=== PATIENT | female | born 1940 | race Caucasian/White ===

== ENCOUNTER 2018-03-08 14:43 | Emergency (ER) | payer MEDICARE ==
[2018-03-08 14:53] VITALS: BP 143/64
--- NOTE | 2018-03-08 15:07 | UC ---
Respiratory Complaint HPI - HPI Summary HPI Summary: 77 y/o male presents to the urgent care c/o dry cough w/ nasal congestion, sinus pain, Kimble, a yellowish nasal discharge. Pt report symptoms started w/ the common cold and mild wheezing at the beginning, which has resolved. However she has +PND which is yellowish at times. she was Dx in the past w/ Asthma, but she doesn't like to take medications. Sinus pain and KIMBLE is 4/10 at times. Pt denies SOB, wheezing, chest pain, abdominal pain, N/V/D. c - History of Current Complaint Chief Complaint: UCRespiratory Stated Complaint: ASTHMA Time Seen by Provider: 03/08/18 15:05 Hx Obtained From: Patient Hx Last Menstrual Period: Years ago. Onset/Duration: Gradual Onset, Lasting Days - 10 days, Still Present, Worse Since - yesterday Timing: Constant Severity Initially: Mild Severity Currently: Moderate Pain Intensity: 4 - sinus pain and head Pain Scale Used: 0-10 Numeric Character: Cough: Nonproductive Aggravating Factors: Recumbent Position Alleviating Factors: OTC Meds Associated Signs And Symptoms: Positive: Wheezing - at the beginning of symptoms and resolved now, URI, Nasal Congestion, Sinus Discomfort. Negative: Fever, Chills - Risk Factors Pulmonary Embolism Risk Factors: Negative Cardiac Risk Factors: Negative Pseudomonas Risk Factors: Negative Tuberculosis Risk Factors: Negative - Allergies/Home Medications Allergies/Adverse Reactions: Allergies Allergy/AdvReac Type Severity Reaction Status Date / Time codeine Allergy Nausea And Verified 03/08/18 14:54 Vomiting hydrocodone Allergy Nausea And Verified 03/08/18 14:54 Vomiting Sulfa (Sulfonamide Allergy Unknown Verified 03/08/18 14:54 Antibiotics) Reaction Details HAYFEVER Allergy Congestion Uncoded 12/27/15 12:55 / SNEEZING Home Medications: Home Medications Aspirin EC TAB* [Ecotrin EC Low Dose 81 MG*] 1 tab PO DAILY 03/08/18 [History Confirmed 03/08/18] PMH/Surg Hx/FS Hx/Imm Hx Previously Healthy: Yes Other Endocrine History: Vitamin D and B defficiency Cardiovascular History: Hypertension Respiratory History: Asthma Other Neurological History: DDD, myalgias Other History Of: Negative For: HIV, Hepatitis B, Hepatitis C, Anticoagulant Therapy - Surgical History Surgical History: Yes Surgery Procedure, Year, and Place: 1985 HYSTERECTOMY, [facility]. 1969' CHOLECYSTECTOMY, [facility] [place]. 2002 BILATERAL KNEE SURGERY, [facility] [place] 2009 LEFT LEG VEIN SURGERY, [facility] [place]. 1969' NODULE REMOVED FROM [facility], [place]. 2013 BILATERAL CATARACTS [facility] [place] - Family History Known Family History: Positive: Cardiac Disease - Social History Occupation: Retired Lives: With Family Alcohol Use: None Substance Use Type: None Smoking Status (MU): Former Smoker Type: Cigarettes Amount Used/How Often: 1PPD 10YRS Have You Smoked in the Last Year: No When Did the Patient Quit Smoking/Using Tobacco: 1971 - Immunization History Most Recent Influenza Vaccination: 07/29 Review of Systems Constitutional: Negative Skin: Negative Eyes: Negative ENT: Nasal Discharge, Sinus Congestion, Sinus Pain/Tenderness Respiratory: Cough - dry Cardiovascular: Negative Gastrointestinal: Negative Genitourinary: Negative Motor: Negative Neurovascular: Negative Musculoskeletal: Negative Neurological: Headache Psychological: Negative Is Patient Immunocompromised?: No All Other Systems Reviewed And Are Negative: Yes Physical Exam - Summary Physical Exam Summary: Vitals: reviewed General: Well developed, well-nourished old female patient with no apparent respiratory distress Head and face: Normocephalic and atraumatic, Positive tenderness over the frontal and maxillary sinuses.. Eyes: PERRLA, EOMI x 2. Normal conjunctiva. No eye discharge. ENT: Ears and TM with normal limits. Nose: edematous and erythematous nasal mucosa with with yellowish discharge and erythematous mucosa. Pharynx with erythema, no exudate. +PND Neck: Supple, no JVD, no carotid bruits and no lymphadenopathy. Chest: no orthopnea or dyspnea. Able to speak in full sentences, no retractions or accessory muscle use, no tripod position, - no grunting, stridor, or head bobbing. CTA bilaterally, no wheezes, rhonchi, rales. CVS: RRR, S1 and S2 present no murmurs or gallops appreciated. Abdomen: soft nontender with positive bowel sounds. Extremities: no edema noted. Neuro: WNL. Skin: warm and dry Triage Information Reviewed: Yes Vital Signs: Initial Vital Signs Temp 98.1 F 03/08/18 14:49 Pulse 67 03/08/18 14:49 Resp 18 03/08/18 14:49 BP 143/64 03/08/18 14:49 Pulse Ox 98 03/08/18 14:49 Diagnostic Evaluation - Laboratory O2 Sat by Pulse Oximetry: 98 Respiratory Course/Dx - Course Course Of Treatment: 77 y/o male presents to the urgent care c/o dry cough w/ nasal congestion, sinus pain, Kimble, a yellowish nasal discharge. Pt report symptoms started w/ the common cold and mild wheezing at the beginning, which has resolved. However she has +PND which is yellowish at times. she was. Dx in the past w/ Asthma, but she doesn't like to take medicationsand has been controlled. Sinus pain and KIMBLE is 4/10 at times. Pt denies SOB, wheezing, chest pain, abdominal pain, N/V/D. Hx obtained. Pt w/ acute bacterial sinusitis , lungs are clear B/L no wheezing, O2sat: 98% on examination. Pt with 2 weeks of symptoms getting worse. Pt Rx Amoxicillin PO and flonase nasal spray. Tessalon PO for cough. Discharge instructions explained to Pt. Advised to Return to the clinic or PCP if symptoms do not improve. Pt's BP is elevated today advised to decrease salt in diet, monitor BP and f/u with PCP for further management. Pt understood and agreed with plan of care and left the clinic hemodynamically stable. - Differential Dx/Diagnosis Differential Diagnosis/HQI/PQRI: Asthma, Bronchitis, Influenza, Laryngitis, Lower Resp Infection, Sinusitis Provider Diagnoses: 1- Acute bacterial sinusitis. 2- Uncontrolled HTN Discharge - Sign-Out/Discharge Documenting (check all that apply): Discharge/Admit/Transfer - D/c home - Discharge Plan Condition: Stable Disposition: HOME Prescriptions: Albuterol HFA INHALER* [Ventolin HFA Inhaler*] 1 puff INH Q6H PRN #1 mdi PRN Reason: Cough Amoxicillin PO (*) [Amoxicillin 875 MG (*)] 875 mg PO BID #20 tab Fluticasone NASAL SPRAY 50MCG* [Flonase NASAL SPRAY 50MCG*] 2 spray BOTH NARES DAILY #1 btl Patient Education Materials: Sinusitis (ED), Low-Sodium Diet (ED) Referrals: Shanelle Booth MD [Primary Care Provider] - 1 Week Additional Instructions: 1- Please increase fluid intake and rest. take full course of antibiotic to avoid resistance 2-Use Flonase as directed to help drain fluid. Also buy saline drops to clear sinuses anduse it before going to the shower 3-Use the albuterol inhlaer as directed only if you feel bronchospasm or wheezing 4-Return to the clinic or PCP if symptoms do not improve in 1 week for further management and treatment 5-Your BP is elevated today. please decrease salt in your diet, monitor BP and if it continues to be elevated please f/u with your PCP for further management - Billing Disposition and Condition Condition: STABLE Disposition: HOME
== END 2018-03-08 15:58 | disposition home or self-care (01) ==
LOC: UCEAST 14:43
DX: J01.90 Acute sinusitis, unspecified (principal); B96.89 Other specified bacterial agents as the cause of diseases classified elsewhere; I10 Essential (primary) hypertension; Z88.5 Allergy status to narcotic agent; Z88.2 Allergy status to sulfonamides; Z91.048 Other nonmedicinal substance allergy status; Z79.82 Long term (current) use of aspirin; Z90.710 Acquired absence of both cervix and uterus; Z87.891 Personal history of nicotine dependence
CPT/HCPCS: 99212; G0463

== ENCOUNTER → 2018-04-18 18:42 | Emergency (ER) | payer MEDICARE ==
[2018-04-18 20:26] LABS: ABS Basophils 0.1 10^3/ul (0-0.2); ABS Eosinophils 0 10^3/ul (0-0.6); ABS Lymphocytes 1.6 10^3/ul (1.0-4.8); ABS Monocytes 0.6 10^3/ul (0-0.8); ABS Neutrophils 6.1 10^3/ul (1.5-7.7); ABS Nucleated RBC 0 10^3/ul; Eosinophil % 0 % (0-6); Hematocrit 44 % (35-47); Hemoglobin 14.7 g/dl (12.0-16.0); Lymphocyte % 18.8 % (25-47); Mean Corpuscular HGB Conc 33 g/dl (31-36); Mean Corpuscular Hemoglobin 28 pg (27-31); Mean Corpuscular Volume 86 fL (80-97); Mean Platelet Volume 7.5 um3 (7.4-10.4); Nucleated Red Blood Cells % 0.3; Platelet Count 177 10^3/ul (150-450); Red Blood Count 5.16 10^6/ul (4.00-5.40); Red Cell Distribution Width 15 % (10.5-15); White Blood Count 8.4 10^3/ul (3.5-10.8)
[2018-04-18 20:38] LABS: INR 0.9 (0.77-1.02)
[2018-04-18 20:46] LABS: EGFR Non-African American 52.1 (>60)
--- NOTE | 2018-04-18 22:17 | ED ---
Deshaun Crawley SooYoung, scribed for Cara Carmen MD on 04/18/18 at 1954 . Complex/Multi-Sys Presentation - HPI Summary HPI Summary: A 77 y/o F presents to ED referred from [facility] with c/o feeling "weird" after the gym onset this afternoon around 1530. She states the weirdness since resolved. Denies n/v, SOB. In the part, a doctor at [facility] told the pt that a part of her heart gets "stiff," she takes Metoprolol. PCP is Dr. Marshall. Medications reviewed this visit. Allergies noted. - History Of Current Complaint Chief Complaint: EDGeneral Time Seen by Provider: 04/18/18 19:31 Hx Obtained From: Patient Onset/Duration: Resolved Severity Currently: None - 0 / 10 pain Associated Signs And Symptoms: Negative: SOB, Nausea, Vomiting - Allergies/Home Medications Allergies/Adverse Reactions: Allergies Allergy/AdvReac Type Severity Reaction Status Date / Time codeine Allergy Nausea And Verified 03/08/18 14:54 Vomiting hydrocodone Allergy Nausea And Verified 03/08/18 14:54 Vomiting Sulfa (Sulfonamide Allergy Unknown Verified 03/08/18 14:54 Antibiotics) Reaction Details HAYFEVER Allergy Congestion Uncoded 12/27/15 12:55 / SNEEZING Home Medications: Home Medications Cholecalciferol (Vitamin D3) [Vitamin D3] 1 tab PO BID 04/18/18 [History Confirmed 04/18/18] Vitamin B Complex [Balance B-50] 1 tab PO DAILY 04/18/18 [History Confirmed 01/31] buPROPion HCl [Bupropion HCl Sr] 1 tab PO DAILY 04/18/18 [History Confirmed 01/31] PMH/Surg Hx/FS Hx/Imm Hx Previously Healthy: No Endocrine/Hematology History: Denies: Hx Anticoagulant Therapy, Hx Diabetes, Hx Thyroid Disease Cardiovascular History: Denies: Hx Congestive Heart Failure, Hx Deep Vein Thrombosis, Hx Hypertension , Hx Myocardial Infarction Comment Only: Other Cardiovascular Problems/Disorders - DYSTOLIC DYSFUNCTION , HAD CARDIAC CATH, SEES DR SEGAL, ON TOPROLOL Respiratory History: Reports: Hx Asthma Denies: Hx Chronic Obstructive Pulmonary Disease (COPD), Hx Lung Cancer, Hx Pneumonia, Hx Pulmonary Embolism GI History: Reports: Hx Gastroesophageal Reflux Disease - OCCASIONAL, Hx Irritable Bowel, Other GI Disorders - GERD/DIVERTICULITIS Denies: Hx Gall Bladder Disease, Hx Gastrointestinal Bleed, Hx Ulcer, Hx Urosepsis History: Reports: Other Problems/Disorders - BLADDER INFECTION 1 1/2 YEAR AGO, NO PROBLEMS NOW Denies: Hx Kidney Stones, Hx Renal Disease Musculoskeletal History: Reports: Hx Arthritis - LEFT HAND, NECK, Other Musculoskeletal History - FIBROMYALGIA Sensory History: Reports: Hx Cataracts - 2013 BILATERAL, Hx Contacts or Glasses - GLASSES Denies: Hx Hearing Aid Opthamlomology History: Reports: Hx Cataracts - 2013 BILATERAL, Hx Contacts or Glasses - GLASSES Neurological History: Reports: Hx Migraine - HX OF, NONE NOW, Other Neuro Impairments/Disorders - FIBROMYALGIA Denies: Hx Dementia, Hx Seizures, Hx Transient Ischemic Attacks (TIA) Psychiatric History: Reports: Hx Depression Denies: Hx Anxiety, Hx Schizophrenia, Hx Bipolar Disorder - Cancer History Hx Chemotherapy: No Hx Radiation Therapy: No - Surgical History Surgery Procedure, Year, and Place: 1985 HYSTERECTOMY, [facility] [place]. CHOLECYSTECTOMY, [facility] [place]. 2002 BILATERAL KNEE SURGERY, [facility] [place]. 2009 LEFT LEG VEIN SURGERY, [facility] [place]. NODULE REMOVED FROM [facility], [place]. 2012 BILATERAL CATARACTS [facility] Hx Anesthesia Reactions: No Infectious Disease History: No Infectious Disease History: Denies: Hx Clostridium Difficile, Hx Hepatitis, Hx Human Immunodeficiency Virus (HIV), Hx of Known/Suspected MRSA, Hx Shingles, Hx Tuberculosis, Hx Known/ Suspected VRE, Hx Known/Suspected VRSA, History Other Infectious Disease, Traveled Outside the [place] in Last 30 Days - Family History Known Family History: Positive: Cardiac Disease - Social History Occupation: Retired Lives: Alone Alcohol Use: None Hx Substance Use: No Substance Use Type: Reports: None Hx Tobacco Use: Yes Smoking Status (MU): Former Smoker Type: Cigarettes Amount Used/How Often: 1PPD 10YRS Have You Smoked in the Last Year: No Review of Systems Negative: Shortness Of Breath Negative: Vomiting, Nausea Psychological: Other - "weird' All Other Systems Reviewed And Are Negative: Yes Physical Exam - Summary Physical Exam Summary: VITAL SIGNS: Reviewed. GENERAL: Patient is a well-developed and nourished FEMALE who is lying comfortable in the stretcher. Patient is not in any acute respiratory distress. HEAD AND FACE: No signs of trauma. No ecchymosis, hematomas or skull depressions. No sinus tenderness. EYES: PERRLA, EOMI x 2, No injected conjunctiva, no nystagmus. EARS: Hearing grossly intact. Ear canals and tympanic membranes are within normal limits. MOUTH: Oropharynx within normal limits. NECK: Supple, trachea is midline, no adenopathy, no JVD, no carotid bruit, no c- spine tenderness, neck with full ROM. CHEST: Symmetric, no tenderness at palpation LUNGS: Clear to auscultation bilaterally. No wheezing or crackles. CVS: Regular rate and rhythm, S1 and S2 present, no murmurs or gallops appreciated. ABDOMEN: Soft, non-tender. No signs of distention. No rebound no guarding, and no masses palpated. Bowel sounds are normal. EXTREMITIES: FROM in all major joints, no edema, no cyanosis or clubbing. NEURO: Alert and oriented x 3. No acute neurological deficits. Speech is normal and follows commands. SKIN: Dry and warm Triage Information Reviewed: Yes Vital Signs On Initial Exam: Initial Vitals Temp Pulse Resp BP Pulse Ox 97.7 F 61 19 178/73 97 04/18/18 18:54 04/18/18 18:54 04/18/18 18:54 04/18/18 18:54 04/18/18 18:54 Vital Signs Reviewed: Yes Diagnostics - Vital Signs Vital Signs Temp Pulse Resp BP Pulse Ox 04/18/18 19:07 60 16 165/81 96 04/18/18 19:00 17 04/18/18 18:59 62 23 95 04/18/18 18:54 97.7 F 61 19 178/73 97 - Laboratory Result Diagrams: 04/18/18 20:12 04/18/18 21:07 Lab Statement: Any lab studies that have been ordered have been reviewed, and results considered in the medical decision making process. - EKG 2003 EKG Rhythm: Sinus Bradycardia - 57bpm EKG Interpretation: non-specific T waves in inferior leads Re-Evaluation - Re-Evaluation 1 Re-Evaluation Time: 21:30 Change: Unchanged Comment: Pt in restroom. 2 Re-Evaluation Time: 22:06 Change: Unchanged Comment: Discussing lab results with pt. Pt feeling OK at bedside. Complex Multi-Symp Course/Dx Course Of Treatment: A 77 y/o F presents to ED referred from [facility] with c/o feeling "weird" after the gym onset this afternoon around 1530. She states the weirdness since resolved. Denies n/v, SOB. Pt has no complaints at bedside. Medications reviewed this visit. Allergies noted. Lab work is WNL except creatinine 1.03. EKG shows sinus skyler with non-specific T waves in inferior leads. Will D/C home to f/u with Dr. Esqueda. - Diagnoses Provider Diagnoses: Weakness Discharge - Sign-Out/Discharge Documenting (check all that apply): Discharge/Admit/Transfer - DC - Discharge Plan Condition: Stable Disposition: HOME Patient Education Materials: Weakness (ED) Referrals: Shanelle Booth MD [Primary Care Provider] - 2 Days Additional Instructions: Follow up with your primary care doctor in two days. RETURN TO THE EMERGENCY DEPARTMENT FOR CHANGING OR WORSENING SYMPTOMS. The documentation as recorded by the Deshaun devine SooYoung accurately reflects the service I personally performed and the decisions made by me, Cara Carmen MD.
[2018-04-18 22:37] VITALS: BP 163/105
== END | disposition home or self-care (01) ==
LOC: ED 18:42
DX: R53.1 Weakness (principal); R00.1 Bradycardia, unspecified; K21.9 Gastro-esophageal reflux disease without esophagitis; F32.9 Major depressive disorder, single episode, unspecified; Z88.5 Allergy status to narcotic agent; Z88.2 Allergy status to sulfonamides; Z82.49 Family history of ischemic heart disease and other diseases of the circulatory system; Z87.891 Personal history of nicotine dependence
CPT/HCPCS: 36415; 80053; 82550; 83735; 84484; 85025; 85610; 85730; 93005; 99283